=== PATIENT | male | born 1955 | race Caucasian/White ===

== ENCOUNTER 2018-02-15 12:06 | Emergency (ER) | payer MEDICAID ==
[~2018-02-15] VITALS: Ht 160 cm; Wt 82.6 kg
[2018-02-15 12:11] VITALS: BP 165/92
--- NOTE | 2018-02-15 12:19 | NUR ---
PT AMBULATED TO BED 2
--- NOTE | 2018-02-15 12:20 | NUR ---
62m bib family with c/o sob x 3 progressively getting worse. Patient states no relief with home medication for asthma. RR are tachypneic and labored. Clear speech with short phrases. Pulse ox=93% on RA. Patient is aox4. GCS=15. Skin is dry/cool to touch/color appriopriate for ethnicity. Awaiting er md mckeon and md martin made aware of patient status. Patient placed on cardiac, pulse oximetry, and blood pressure monitor. Will continue to monitor.
--- NOTE | 2018-02-15 12:20 | NUR ---
patient denies any sob
--- NOTE | 2018-02-15 12:29 | NUR ---
xray by bedside
[2018-02-15] MEDS ORDERED: ALBUTEROL SULFATE/IPRATROPIU 3 ML SOL IH ONE ×2 (12:35→13:45)
--- NOTE | 2018-02-15 12:40 | NUR ---
rt by bedside
[2018-02-15] MEDS ORDERED: methylPREDNISolone SS 125 MG/2 ML VIAL IM ONE (13:25)
--- NOTE | 2018-02-15 14:04 | NUR ---
RT at bedside for breathing treatment.
--- NOTE | 2018-02-15 14:22 | NUR ---
patient states he is feeling a lot better. rr are even and unlabored at this time. pulse ox=93% on ra. er md martin notified and aware and states okay to discharge. patient has clear speech and speaking in full sentence.
[2018-02-15 14:25] VITALS: BP 169/90
== END 2018-02-15 14:24 | disposition home or self-care (01) ==
LOC: MED 12:06
DX: J20.9 Acute bronchitis, unspecified (principal)
CPT/HCPCS: 71045; 94640; 96372; 99284; J2930; J7620

== ENCOUNTER 2019-11-06 10:45 | Emergency (ER) | payer MEDICAID, OTHER ==
[~2019-11-06] VITALS: Ht 160 cm; Wt 72.6 kg
[2019-11-06 10:53] VITALS: BP 162/82
[2019-11-06] MEDS ORDERED: NACL 0.9% 500 ML IV SCH (10:58)
--- NOTE | 2019-11-06 11:03 | NUR ---
64 YO M C/O COUGH AND X 15 DAYS. PT STATES THAT SYMPTOMS OBSERVED AFTER TRIP TO [facility] 15 DAYS AGO. PT IS A KNOWN ASTHMATIC, BUT HAS NOT BEEN USING HIS INHALER. DENIES N/V/D; +RHONCHI ON EXPIRATION ON ALL LUNG ADKINS; HR EVEN AND REGULAR; PATIENT STATES PAIN OF 0/10 AT THIS TIME; VSS; PATIENT POSITIONED FOR COMFORT; HOB ELEVATED; BEDRAILS UP X2; BED DOWN. ER MD MADE AWARE OF PT STATUS. SLICK
[2019-11-06] MEDS ORDERED: ALBUTEROL SULFATE/IPRATROPIU 3 ML SOL IH ONE ×2 (11:35→13:00)
[2019-11-06] MEDS ORDERED: MAG SULF 2000 MG/WATER PREMIX 50 ML IV ONE (11:35)
[2019-11-06] MEDS ORDERED: methylPREDNISolone SS 125 MG/2 ML VIAL IVP ONE (11:35)
[2019-11-06 11:36] LABS: BASOPHILS # (AUTO) 0.1 K/uL (0.00-0.22); BASOPHILS % (AUTO) 0.8 % (0.0-2.0); EOSINOPHILS # (AUTO) 0.7 K/uL (0-0.4); EOSINOPHILS % (AUTO) 7.9 % (0.0-4.0); HEMATOCRIT 44.2 % (36-52); LYMPHOCYTES # (AUTO) 2.4 K/uL (2.0-11.5); MEAN CORPUSCULAR HEMOGLOBIN 29 pg (27-31); MEAN CORPUSCULAR HGB CONC 34 g/dL (33-37); MEAN CORPUSCULAR VOLUME 85.9 fL (80-94); MONOCYTES # (AUTO) 0.7 K/uL (0.8-1.0); MONOCYTES % (AUTO) 7.6 % (1.7-9.3); NEUTROPHILS # (AUTO) 4.8 K/uL (1.8-7.7); NEUTROPHILS % (AUTO) 55.7 % (42.2-75.2); PLATELET COUNT (AUTO) 319 K/uL (140-450); RED BLOOD CELL COUNT(AUTO) 5.15 MIL/uL (4.20-6.10); RED CELL DISTRIBUTION WIDTH 12.9 % (11.6-13.7); WHITE BLOOD COUNT (AUTO) 8.7 K/uL (4.8-10.8)
--- NOTE | 2019-11-06 11:43 | NUR ---
[facility]ER[facility]AT[facility] DRUG GIVEN ORDERED ENCOURAGED PATIENT FOR INTERMITTENT DEEP BREATHING DURING THERAPY
[2019-11-06 11:55] LABS: PROTHROMBIN TIME 9.9 secs (10.8-13.4)
[2019-11-06 12:01] LABS: ALBUMIN 3.6 g/dL (3.4-5.0); ANION GAP 11.8 (8-16); CARBON DIOXIDE 28.6 mmol/L (21-32); CREATININE 1.1 mg/dL (0.6-1.3); POTASSIUM 3.4 mmol/L (3.5-5.1); TOTAL BILIRUBIN 0.6 mg/dL (0.0-1.0)
[2019-11-06 12:11] LABS: APPEARANCE,URINE CLEAR (CLEAR); BILIRUBIN,URINE NEGATIVE (NEGATIVE); BLOOD, URINE NEGATIVE (NEGATIVE); COLOR,URINE YELLOW (YELLOW); LEUKOCYTE ESTERASE ,URINE NEGATIVE (NEGATIVE); NITRITE, URINE NEGATIVE (NEGATIVE); UGLUCOSE TRACE (NEGATIVE)
--- NOTE | 2019-11-06 13:02 | NUR ---
PT RESTING AT BEDSIDE. SAT 93% RA. VSS. ALL NEEDS MET AT THIS TIME.
--- NOTE | 2019-11-06 13:33 | NUR ---
RT AT BEDSIDE FOR BREATHING TX
--- NOTE | 2019-11-06 14:10 | NUR ---
PT LAYING SEMIFOWLER IN BED, SPO2 89-93% ON RA, RR 18 EVEN AND UNLABORED. LUNG SOUNDS WITH MILD BL EXPIRATORY WHEEZING BUT WITH IMPROVEMENT. PT REPORTS SIGNIFICANT IMPROVEMENT IN SOB. DR POWELL MADE AWARE, PER ER MD, PT IS OK FOR DISCHARGE.
[2019-11-06 14:12] VITALS: BP 134/77
--- NOTE | 2019-11-06 14:12 | NUR ---
Patient discharged with v/s stable. Written and verbal after care instructions given and explained. Patient alert, oriented and verbalized understanding of instructions. Ambulatory with steady gait. All questions addressed prior to discharge. ID band removed. Patient advised to follow up with PMD. Rx of PREDNISONE, ALBUTEROL INH, COMBIVENT INH given. Patient educated on indication of medication including possible reaction and side effects. Opportunity to ask questions provided and answered.
--- NOTE | 2019-11-11 09:11 | NUR ---
Late entry. Confirmed with RN that Mag IV completed at 1400
== END 2019-11-06 14:12 | disposition home or self-care (01) ==
LOC: MED 10:45
DX: J45.901 Unspecified asthma with (acute) exacerbation (principal); E11.9 Type 2 diabetes mellitus without complications; I10 Essential (primary) hypertension
CPT/HCPCS: 36415; 36600; 71045; 80053; 81003; 82803; 83605; 83880; 84484; 85025; 85610; 85730; 87040; 87086; 93005; 94640; 96365; 96366; 96375; 99284; J2930; J7030; J7620; Q0092